=== PATIENT | male | born 1945 | race Caucasian/White ===

== ENCOUNTER 2017-06-06 21:46 | Observation (INO) | payer OTHER ==
[~2017-06-06] VITALS: Ht 172.7 cm; Wt 81.2 kg
[~2017-06-06 21:46] MED LIST: NO HOME MEDS
[2017-06-06 23:23] LABS: BASOPHIL COUNT 0.1 K/uL (0-0.1); EOSINOPHIL (%) 1.6 % (0-5); EOSINOPHIL COUNT 0.2 K/uL (0-0.3); HEMATOCRIT 38.3 % (38.0-50.0); IMMATURE GRANULOCYTE (%) 0.4 % (0.0-0.7); INSTRUMENT ABS NEUTROPHIL CT 6.9 K/uL; LYMPHOCYTE COUNT 1.2 K/uL (1.0-2.8); MCH 31.7 PG (29.0-34.0); MCHC 34.7 G/DL (30.0-36.0); MCV 91.4 FL (86-99); MEAN PLAT.VOLUME 10.1 uM^3 (9.0-12.4); MONOCYTE (%) 10.4 % (3-12); NEUTROPHIL COUNT 6.9 K/uL (1.8-6.4); PLATELET COUNT 183 K/uL (156-360); RBC DIS.WIDTH-CV 12.4 % (11.8-14.6); RBC DIS.WIDTH-SD 41.1 % (39-53); RED BLOOD COUNT 4.19 M/uL (4.00-5.50); WHITE BLOOD COUNT 9.3 K/uL (4.1-10.2)
[2017-06-06 23:36] LABS: CHLORIDE 109 mEq/L (99-109); SODIUM 142 mEq/L (136-147)
[2017-06-06 23:38] LABS: GLUCOSE 127 mg/dL (70-99)
[2017-06-06 23:39] LABS: ANION GAP 12 MEQ/L (2-14)
[2017-06-06 23:41] LABS: SERUM ETHYL ALCOHOL < 10 mg/dL
[2017-06-06 23:42] LABS: GFR ESTIMATE (CALCULATED) > 59 mL/min/
[2017-06-06 23:43] LABS: TROP-I INTERPRETATION NEGATIVE; TROPONIN-I 0.02 ng/mL (0.0-0.30); UREA NITROGEN (BUN) 16 mg/dL (9-23)
[2017-06-07] VITALS (7 sets, daily range): BP systolic 117–141; BP diastolic 62–77
[2017-06-07] MEDS ORDERED: BAL B-501 EACH PO (01:27)
[2017-06-07] MEDS ORDERED: CENTRUM SILVER1 EAC3 PO (01:27)
[2017-06-07 06:14] LABS: TROP-I INTERPRETATION NEGATIVE; TROPONIN-I 0.01 ng/mL (0.0-0.30)
[2017-06-07 12:40] LABS: TROP-I INTERPRETATION NEGATIVE; TROPONIN-I 0.01 ng/mL (0.0-0.30)
[2017-06-07] MEDS ORDERED: ASPIRIN81 M2 PO (15:30)
[2017-06-07] MEDS ORDERED: PRAVACHOL40 MG PO (15:30)
== END 2017-06-07 16:28 | disposition home or self-care (01) ==
LOC: EME 21:46 → EDOF 06-07 03:34 → ENRESERV 06-07 03:37 → 5WEST 06-07 04:59
PROVIDERS: Emergency Medicine; Hospitalist
DX: R55 Syncope and collapse (principal); R94.31 Abnormal electrocardiogram [ECG] [EKG]; F17.210 Nicotine dependence, cigarettes, uncomplicated; J33.0 Polyp of nasal cavity; Z72.89 Other problems related to lifestyle
CPT/HCPCS: 70450; 70551; 71020; 78582; 80048; 84484; 85025; 93005; 93880; 95819; 99281; 99285; A9540; A9567; G0378; G0480; J1650; J3010; J7030